=== PATIENT | male | born 1955 | race Caucasian/White ===

== ENCOUNTER 2021-04-01 13:00 | Emergency (ER) | payer MEDICARE, OTHER ==
[2021-04-01] MEDS ORDERED: TAMSULOSIN 0.4 MG CAPSULE PO STA (13:44)
[2021-04-01] MEDS ORDERED: HYDROmorphone 1 MG/ML CARPUJECT IVP STA (13:44)
--- NOTE | 2021-04-01 13:47 | ED Physician Documentation ---
History of Present Illness - Stated complaint Stated Complaint: MALE - Chief complaint Chief Complaint: Abd Pain - Additonal information Additional information: 66-year-old male presents the emergency department for evaluation of acute pro state pain and difficulty with urination. He reports that he has a history of an enlarged prostate. He is followed by doctors at the [facility] in [facility]. He reports that he recently had an MRI but as of yet there is no treatment planned for the enlarged prostate. [place]. This morning he woke up was able to void normally. He then did have sexual intercourse with his . He denies that there was anything different or unusual about the intercourse and he was able to ejaculate normally. Shortly thereafter he was driving to [place] and felt the need to pee however he found that urinating was exquisitely uncomfortable and he has had worsening pain in his prostate area since. He denies any history of rectal penetration. Denies dysuria urgency or frequency preceding this he takes no prostate medications and has not recently had any antibiotics. In the fast track area this gentleman is exquisitely uncomfortable. Review of Systems Constitutional: denies: Fever, Chills Eyes: reports: Reviewed and negative Ears: reports: Reviewed and negative Nose: reports: Reviewed and negative Throat: reports: Reviewed and negative Cardiac: reports: Reviewed and negative Respiratory: reports: Reviewed and negative GI: reports: Nausea. denies: Vomiting : reports: Dysuria, Frequency, Unable to Void Skin: reports: Reviewed and negative Musculoskeletal: reports: Reviewed and negative PD PAST MEDICAL HISTORY - Past Medical History Past Medical History: Yes Cardiovascular: Hypertension Respiratory: None Neuro: None GI: None : Benign prostate hypertrophy, Retention HEENT: Chronic vision loss Psych: None Musculoskeletal: None Derm: None - Past Surgical History Past Surgical History: No - Present Medications Home Medications: Ambulatory Orders Medication Instructions Recorded Confirmed Tamsulosin HCl [Flomax] 0.4 mg PO DAILY #30 cap 04/01/21 - Social History Does the pt smoke?: No Smoking Status: Never smoker Does the pt drink ETOH?: No Does the pt have substance abuse?: No - Immunizations Immunizations are current?: Yes - POLST Patient has POLST: No PD ED PE EXPANDED - General General: Alert, In Pain, In distress - Cardiac Cardiac: Regular Rate, Radial strong equal, Pedal strong equal, Cap refill < 2 sec - Respiratory Respiratory: Clear to ausultation quique. No: Distress, Labored - Abdomen Abdomen: Normal Bowel sounds, Tender to palpation (Suprapubic.) - Male Male : Circumcised, Normal lie/cremastaric, Other (Digital rectal exam reveals markedly enlarged and tender prostate. ). No: Skin lesions, Discharge Results - Vitals Vitals: Vital Signs - 24 hr 04/01/21 15:40 Temperature 36.7 C Heart Rate 71 Respiratory 16 Rate Blood Pressure 123/72 O2 Saturation 100 Oxygen O2 Source Room air - Labs Labs: Laboratory Tests 04/01/21 04/01/21 04/01/21 14:11 14:11 15:01 WBC 13.6 H RBC 4.86 Hgb 14.4 Hct 42.9 MCV 88.3 MCH 29.6 MCHC 33.6 RDW 13.0 Plt Count 171 MPV 11.2 Neut # (Auto) 11.6 H Lymph # (Auto) 1.1 L [place] # (Auto) 0.7 Eos # (Auto) 0.1 Baso # (Auto) 0.0 Absolute Nucleated RBC 0.00 Nucleated RBC % 0.0 Sodium 137 Potassium 3.4 L Chloride 103 Carbon Dioxide 23 Anion Gap 11.0 BUN 23 H Creatinine 1.1 Estimated GFR (MDRD) 67 L Glucose 127 H Calcium 9.3 Total Bilirubin 1.3 H AST 37 ALT 46 Alkaline Phosphatase 48 Total Protein 7.4 Albumin 4.4 Globulin 3.0 Albumin/Globulin Ratio 1.5 Lipase 29 Urine Color YELLOW Urine Clarity CLEAR Urine pH 5.5 Ur Specific [place] 1.010 Urine Protein NEGATIVE Urine Glucose (UA) NEGATIVE Urine Ketones NEGATIVE Urine Occult Blood MODERATE H Urine Nitrite NEGATIVE Urine Bilirubin NEGATIVE Urine Urobilinogen 0.2 (NORMAL) Ur Leukocyte Esterase NEGATIVE Urine RBC 0-5 Urine WBC 0-3 Ur Squamous Epith Cells NONE SEEN Urine Bacteria Rare Ur Microscopic Review INDICATED Urine Culture Comments NOT INDICATED PD MEDICAL DECISION MAKING - ED course Complexity details: reviewed results, re-evaluated patient, d/w patient, d/w family ED course: 66-year-old male has a history of known prostate enlargement on no medical treatment presents the emergency department with acute urinary obstruction. This a.m. he was able to void normally when he woke up but shortly after sexual intercourse found himself unable to void. This gentleman presented to the emergency department in quite a bit of distress. Initial bladder scan showed a volume of over 200 mL. He was given an opportunity to try and void but was unable to do that. Nursing staff attempted to place a Pantoja catheter but were unsuccessful. I was able to place a 12 Ukrainian coud catheter with immediate drainage of 5 to 600 mL of clear urine. This gentleman is followed by a urologist in [place] but he plans to summer here on [facility]. I will make a referral for him to follow-up with [facility] urology as well as place him on Flomax. Urine does not show any signs of infection and therefore will defer antibiotics at this time. Patient was given a Pantoja catheter with a leg bag. Advised to return to the emergency department for fevers suddenly severe abdominal pain uncontrolled vomiting. Departure - Departure Disposition: 01 Home, Self Care Clinical Impression: Acute urinary obstruction, Prostate enlargement Condition: Stable Record reviewed to determine appropriate education?: Yes Instructions: ED Catheter Care Pantoja Follow-Up: Ivan Quezada MD [Provider Admit Priv/Credential] - Prescriptions: Tamsulosin HCl [Flomax] 0.4 mg PO DAILY #30 cap Comments: Carmelo cordon were seen in the emergency department today for acute urinary obstruction. This is likely related to your enlarged prostate. Your urine shows no signs of infection your screening labs show no worrisome abnormality. In order to address the obstruction we did place a 12 Ukrainian coud Pantoja catheter. It is important that you continue to follow-up with urology. I do recommend that you call your urologist in [place] however Dr. Ivan Quezada [place] may also be able to see you. Please call his office to see if if they can see you in the next week. After taking Flomax it may be appropriate to try taking the Pantoja catheter out to see if you are able to void on your own. If you are unable to the catheter may need to be replaced. If at any point you have concerns of urinary tract infection, develop worsening abdominal pain, have fevers or uncontrolled vomiting please return immediately to the emergency department.
[2021-04-01 14:16] LABS: BASOPHILS % (AUTO) 0.2 %; EOSINOPHILS # (AUTO) 0.1 10^3/uL (0.0-0.7); EOSINOPHILS % (AUTO) 0.4 %; HCT - HEMATOCRIT 42.9 % (42.0-52.0); HGB - HEMOGLOBIN 14.4 g/dL (14.0-18.0); LYMPHOCYTES # (AUTO) 1.1 10^3/uL (1.5-3.5); MEAN CORPUSCULAR HEMOGLOBIN 29.6 pg (27.0-31.0); MEAN CORPUSCULAR HGB CONC 33.6 g/dL (32.0-36.0); MEAN CORPUSCULAR VOLUME 88.3 fL (80.0-94.0); MEAN PLATELET VOLUME 11.2 fL (7.4-11.4); MONOCYTES # (AUTO) 0.7 10^3/uL (0.0-1.0); MONOCYTES % (AUTO) 5.4 %; NEUTROPHILS # (AUTO) 11.6 10^3/uL (1.5-6.6); NEUTROPHILS % (AUTO) 85.6 %; PLT - PLATELET COUNT 171 10^3/uL (130-450); RED BLOOD COUNT 4.86 10^6/uL (4.70-6.10); WHITE BLOOD COUNT 13.6 x10^3/uL (4.8-10.8)
[2021-04-01 14:31] LABS: ALBUMIN 4.4 g/dL (3.2-5.5); ALBUMIN/GLOBULIN RATIO 1.5 (1.0-2.2); BILIRUBIN,TOTAL 1.3 mg/dL (0.2-1.0); CALCIUM 9.3 mg/dL (8.5-10.3); CREATININE 1.1 mg/dL (0.6-1.2); POTASSIUM 3.4 mmol/L (3.5-5.0); TOTAL PROTEIN 7.4 g/dL (6.7-8.2)
[2021-04-01 15:17] LABS: BILIRUBIN,URINE NEGATIVE (NEGATIVE); GLUCOSE, URINE (UA) NEGATIVE (NEGATIVE); KETONES,URINE (UA) NEGATIVE (NEGATIVE); LEUKOCYTE ESTERASE, URINE NEGATIVE (NEGATIVE); NITRITE,URINE NEGATIVE (NEGATIVE); OCCULT BLOOD,URINE MODERATE (NEGATIVE); PH,URINE 5.5 PH (5.0-7.5); PROTEIN,URINE NEGATIVE (NEGATIVE); UROBILINOGEN,URINE 0.2 (NORMAL) E.U./dL (NORMAL)
[2021-04-01 15:40] VITALS: BP 123/72
[2021-04-01 15:43] LABS: BACTERIA,URINE Rare /HPF (None Seen); CLARITY,URINE CLEAR (CLEAR); RBC,URINE 0-5 /HPF (0-5); SQUAMOUS EPITHELIAL CELL,UR NONE SEEN (<= Few); WBC,URINE 0-3 /HPF (0-3)
== END 2021-04-01 16:03 | disposition home or self-care (01) ==
LOC: ED 13:00
DX: N13.9 Obstructive and reflux uropathy, unspecified (principal); N40.1 Benign prostatic hyperplasia with lower urinary tract symptoms; R33.8 Other retention of urine; I10 Essential (primary) hypertension
CPT/HCPCS: 36415; 51701; 80053; 81001; 83690; 85025; 96374; 99283; A9270; J1170; 81003; 87086

== ENCOUNTER 2021-04-06 10:30 | Emergency (ER) | payer MEDICARE, OTHER ==
[2021-04-06 10:51] VITALS: BP 152/77
--- NOTE | 2021-04-06 11:42 | ED Physician Documentation ---
History of Present Illness - Stated complaint Stated Complaint: CATH REMOVAL - Chief complaint Chief Complaint: General - History obtained from History obtained from: Patient - Additonal information Additional information: Pt returns to ED, requesting removal of urinary catheter, which was placed here 5 days ago. 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 No prior history of urinary retention. Pt states he has felt well since last visit. No abd pain or fever/chills. No back pain. No hematuria. Urine has appeared clear. Pt states he was not able to get in to see a local urologist, so has come back here. Review of Systems Ten Systems: 10 systems reviewed and negative Constitutional: reports: Reviewed and negative Eyes: reports: Reviewed and negative Ears: reports: Reviewed and negative Nose: reports: Reviewed and negative Throat: reports: Reviewed and negative Cardiac: reports: Reviewed and negative Respiratory: reports: Reviewed and negative GI: reports: Reviewed and negative : reports: Unable to Void Skin: reports: Reviewed and negative Musculoskeletal: reports: Reviewed and negative Neurologic: reports: Reviewed and negative Psychiatric: reports: Reviewed and negative Endocrine: reports: Reviewed and negative Immunocompromised: reports: Reviewed and negative PD PAST MEDICAL HISTORY - Past Medical History Past Medical History: Yes Cardiovascular: Hypertension Respiratory: None Neuro: None GI: None : Benign prostate hypertrophy, Retention HEENT: Chronic vision loss Psych: None Musculoskeletal: None Derm: None - Past Surgical History Past Surgical History: No - Present Medications Home Medications: Ambulatory Orders Medication Instructions Recorded Confirmed Tamsulosin HCl [Flomax] 0.4 mg PO DAILY #30 cap 04/01/21 04/06/21 Atorvastatin [Lipitor] 20 mg ORAL HS 04/06/21 04/06/21 - Allergies Allergies/Adverse Reactions: Allergies Allergy/AdvReac Type Severity Reaction Status Date / Time No Known Drug Allergies Allergy Verified 04/06/21 15:50 - Social History Does the pt smoke?: No Smoking Status: Never smoker Does the pt drink ETOH?: No Does the pt have substance abuse?: No - Immunizations Immunizations are current?: Yes - POLST Patient has POLST: No PD ED PE NORMAL - Vitals Vital signs reviewed: Yes - General General: Alert and oriented X 3, No acute distress, Well developed/nourished - HEENT HEENT: Atraumatic, PERRL, EOMI, Moist mucous membranes - Neck Neck: Supple, no meningeal sign - Cardiac Cardiac: RRR, No murmur - Respiratory Respiratory: No respiratory distress, Clear bilaterally - Abdomen Abdomen: Soft, Non tender, Non distended - Male Male : Other (Pantoja in place, clear yellow urine.) - Back Back: No CVA TTP - Derm Derm: Normal color, Warm and dry, No rash - Extremities Extremities: No deformity - Neuro Neuro: Alert and oriented X 3 - Psych Psych: Normal mood, Normal affect Results - Vitals Vitals: Oxygen O2 Source Room air PD MEDICAL DECISION MAKING - ED course Complexity details: considered differential, d/w patient ED course: Pantoja removed without difficulty by nursing staff. Pt states he will f/u with his [place] urologist for further concerns. We have discussed the need to return to the ED if further issues with acute retention. Departure - Departure Disposition: 01 Home, Self Care Clinical Impression: Encounter for Pantoja catheter removal Condition: Stable Instructions: Probs Prostate Related Urinary Sx, ED Prostate Enlarged Comments: If you have further episodes of urinary retention, you will need to talk to your urologist about further prevention and management. However, if you develop an other episode of acute urinary retention, you may return to the emergency department for catheter replacement. For please continue the Flomax, as directed by your urologist. Discharge Date/Time: 04/06/21 11:52
== END 2021-04-06 11:52 | disposition home or self-care (01) ==
LOC: ED 10:30
DX: Z46.6 Encounter for fitting and adjustment of urinary device (principal); N40.1 Benign prostatic hyperplasia with lower urinary tract symptoms; R33.8 Other retention of urine; I10 Essential (primary) hypertension
CPT/HCPCS: 51702; 51798; 99283; 99284

== ENCOUNTER 2021-04-06 15:42 | Emergency (ER) | payer MEDICARE, OTHER ==
--- OUTSIDE RECORDS SUMMARY | 2021-04-06 15:45 | EXTERNAL MEDICAL SUMMARY RPT | Continuity of Care Document ---
:1955 Demographics Phone Unavailable Preferred Language Unknown Marital Status Unknown Confucianism Affiliation Unknown Race Unknown Ethnic Group Unknown Author Organization [place] Address [address] [phone] Phone Allergies Encounters Medications Problems Results
--- OUTSIDE RECORDS SUMMARY | 2021-04-06 15:48 | EXTERNAL MEDICAL SUMMARY RPT | Continuity of Care Document ---
:1955 Demographics Phone Unavailable Preferred Language Unknown Marital Status Unknown Congregational Affiliation Unknown Race Unknown Ethnic Group Unknown Author Organization [place] Address [address] [phone] Phone Allergies Encounters Medications Problems Results
[2021-04-06] MEDS ORDERED: HYDROmorphone 1 MG/ML CARPUJECT IM STA (16:11)
--- NOTE | 2021-04-06 16:14 | ED Physician Documentation ---
History of Present Illness - Stated complaint Stated Complaint: MALE - Chief complaint Chief Complaint: Abd Pain - Additonal information Additional information: 66-year-old male return to the emergency department with urinary obstruction. Seen by myself about 6 days ago for acute urinary obstruction thought to be secondary to prostate enlargement. He did require Pantoja catheter daily with a leg bag. He was started on Flomax. He has been unable to follow-up with his urologist as he typically resides in [place]. He did come to the ER today and requested Pantoja removal which we obliged. He was able to void a very quickly after the Pantoja was removed in the ER but since then no voiding. Now with increasing lower abdominal discomfort. Review of Systems Constitutional: reports: Reviewed and negative Eyes: reports: Reviewed and negative Nose: reports: Reviewed and negative Throat: reports: Reviewed and negative Cardiac: reports: Reviewed and negative Respiratory: reports: Reviewed and negative GI: reports: Abdominal Pain : reports: Unable to Void Skin: reports: Reviewed and negative Musculoskeletal: reports: Reviewed and negative PD PAST MEDICAL HISTORY - Past Medical History Past Medical History: Yes Cardiovascular: Hypertension, High cholesterol Respiratory: None Neuro: None Endocrine/Autoimmune: None GI: None : Benign prostate hypertrophy, Retention HEENT: Chronic vision loss Psych: None Musculoskeletal: None Derm: None - Past Surgical History Past Surgical History: Yes HEENT: Tonsil/Adenoidectomy, Other Derm: Skin cancer surgery - Present Medications Home Medications: Ambulatory Orders Medication Instructions Recorded Confirmed Tamsulosin HCl [Flomax] 0.4 mg PO DAILY #30 cap 04/01/21 04/06/21 Atorvastatin [Lipitor] 20 mg ORAL HS 04/06/21 04/06/21 - Allergies Allergies/Adverse Reactions: Allergies Allergy/AdvReac Type Severity Reaction Status Date / Time No Known Drug Allergies Allergy Verified 04/06/21 15:50 - Social History Does the pt smoke?: No Smoking Status: Never smoker Does the pt drink ETOH?: Yes Does the pt have substance abuse?: No - Immunizations Immunizations are current?: Yes - POLST Patient has POLST: No PD ED PE EXPANDED - General General: Alert, In Pain - Cardiac Cardiac: Regular Rate, Radial strong equal, Pedal strong equal, Cap refill < 2 sec - Respiratory Respiratory: Clear to ausultation quique. No: Distress, Stridor - Abdomen Abdomen: Normal Bowel sounds, Tender to palpation (Suprapubic) - Male Male : Normal Exam, Normal lie/cremastaric, Tenderness (penis) - Derm Derm: Normal color, Warm and dry, Pale - Extremities Extremities: Normal. No: Deformity, Tenderness - Neuro Neuro: Alert and Oriented X 3, CNII-XII intact. No: Confused, Disoriented Results - Vitals Vitals: Vital Signs - 24 hr 04/06/21 15:51 Temperature 37.1 C Heart Rate 89 Respiratory 16 Rate Blood Pressure 137/87 H O2 Saturation 99 Oxygen O2 Source Room air PD MEDICAL DECISION MAKING - ED course Complexity details: reviewed results ED course: This is a very well-appearing but unfortunate 66-year-old male that returns to the emergency department with acute urinary obstruction. Morning for Pantoja catheter removal which he appeared to initially tolerate but unfortunately since being discharged from the emergency department has been unable to void. I did see him for similar about 6 days ago and he did require Pantoja catheter placement. He does have a history of enlarged prostate and is on Flomax. This gentleman did present with inability to void. Bladder scan revealed nearly 400 mils of urine. 12 Fijian coud catheter was placed with good resolution of his symptoms. The patient reports to me that he will be flying back to [facility] to see his urologist at the [facility] given his difficulty finding follow-up with urology in this area. Routine Pantoja catheter/leg bag care was discussed. Emergent return precautions for concerns of infection was also discussed. Departure - Departure Disposition: 01 Home, Self Care Clinical Impression: Urinary obstruction Condition: Stable Record reviewed to determine appropriate education?: Yes Comments: Carmelo I am so sorry that you had to have a second Pantoja catheter placed. Unfortunately at this time is going to be very important you continue to follow- up with your urologist. He can discuss long-term treatment of your prostate enlargement with you. This may include what is called a prostatectomy or even a procedure called a TURP. Please continue to care for the Pantoja and leg bag as you previously were. I do recommend a small application of antibiotic ointment around the meatus of your penis to help prevent scabbing and crusting from occurring. You can shower normally. Return to the emergency department if you develop fevers, have suddenly severe abdominal pain flank pain or any concerns of infection within the urine.
[2021-04-06] MEDS ORDERED: LIDOCAINE 2% URO-JET 5 ML SYRINGE UR STA (16:50)
[2021-04-06 17:30] VITALS: BP 137/78
== END 2021-04-06 17:30 | disposition home or self-care (01) ==
LOC: ED 15:42
DX: N40.1 Benign prostatic hyperplasia with lower urinary tract symptoms (principal); R33.8 Other retention of urine; I10 Essential (primary) hypertension; Z46.6 Encounter for fitting and adjustment of urinary device
CPT/HCPCS: 51702; 51798; 96372; 99283; 99284; J1170